=== PATIENT | female | born 1990 | race African-American/Black ===

== ENCOUNTER 2021-01-25 22:12 | Emergency (ER) | payer OTHER ==
[~2021-01-25] VITALS: Ht 167.6 cm; Wt 80.9 kg
[2021-01-25 22:13] VITALS: BP 112/63
[2021-01-25] MEDS ORDERED: ESTROGEN (22:18)
== END 2021-01-26 02:42 | disposition left against medical advice (07) ==
LOC: M ED 22:12
DX: Z53.21 Procedure and treatment not carried out due to patient leaving prior to being seen by health care provider (principal)

== ENCOUNTER → 2021-04-25 | Outpatient (CLI) | payer OTHER ==
[~2021-04-25] MED LIST: ESTROGEN
[2021-04-25 16:40] LABS: BASO % 0.4 % (0.0-1.0); EOS # 0.1 10^3/uL (0.0-0.5); HEMATOCRIT 43.3 % (36.0-47.0); HEMOGLOBIN 14.5 g/dl (12.0-15.5); LYMPH # 2.4 10^3/uL (1.5-5.0); LYMPH % 52.1 % (24.0-44.0); MEAN CORPUSCULAR HEMOGLOBIN 30.4 pg (27.0-33.0); MEAN CORPUSCULAR HGB CONC 33.5 g/dl (32.0-36.5); MEAN CORPUSCULAR VOLUME 90.8 fl (80.0-96.0); MONO # 0.3 10^3/uL (0.0-0.8); MONO % 6.6 % (2.0-8.0); NEUTROPHILS # 1.8 10^3/uL (1.5-8.5); NEUTROPHILS % 38.7 % (36.0-66.0); PLATELET COUNT, AUTOMATED 213 10^3/uL (150-450); RED BLOOD COUNT 4.77 10^6/uL (4.00-5.40); WHITE BLOOD COUNT 4.6 10^3/uL (4.0-10.0)
[2021-04-25 17:06] LABS: ALBUMIN 3.9 GM/DL (3.2-5.2); ALT/SGPT 26 U/L (12-78); BILIRUBIN,TOTAL 0.5 MG/DL (0.2-1.0); BLOOD UREA NITROGEN 13 MG/DL (7-18); CALCIUM LEVEL 8.7 MG/DL (8.5-10.1); CARBON DIOXIDE LEVEL 28 MEQ/L (21-32); CHLORIDE LEVEL 106 MEQ/L (98-107); CREATININE FOR GFR 0.82 MG/DL (0.55-1.30); GLOMERULAR FILTRATION RATE > 60.0 (>60); GLUCOSE, FASTING 79 MG/DL (70-100); POTASSIUM SERUM 3.8 MEQ/L (3.5-5.1); SODIUM LEVEL 137 MEQ/L (136-145); TOTAL PROTEIN 7.7 GM/DL (6.4-8.2)
== END ==
LOC: M LAB 15:14
PROVIDERS: ATTEND Internal Medicine Gastroenterology
DX: R14.2 Eructation (principal)

== ENCOUNTER → 2021-04-27 | Outpatient (REF) | payer OTHER | LOC: M LAB REF 16:26 | PROVIDERS: ATTEND Internal Medicine Gastroenterology | DX: R14.2 Eructation (principal) ==

== ENCOUNTER → 2021-05-16 | Outpatient (CLI) | payer OTHER ==
[~2021-05-16] MED LIST changes: +E-Z-GAS II EFFERVESCENT PACKET (SODIUM BICARB./CITRIC ACID/SIMETHICONE) As Ordered ONE; +E-Z-HD 98% w/w 340GM SUSP BTL As Ordered ONE; +E-Z-PAQUE 96% w/w SUSP 176GM BTL As Ordered ONE
--- NOTE | 2021-05-16 16:44 | REP ---
INDICATION: GASTROPARESIS. COMPARISON: None TECHNIQUE: This procedure was performed by Violet Pantoja [facility], under the direct supervision of Dr. Haywood. Images were reviewed with Dr. Haywood prior to dictation. Liquid barium and gas producing crystals were given in the erect position, as well as liquid barium in the prone oblique position in order to perform a double contrast esophagram examination. FINDINGS: A single view PA chest x-ray is submitted as a guard sergeant film. The superior mediastinal structures are midline. The heart size is within normal limits. The lungs are clear. The oral and pharyngeal stages of deglutition were unremarkable. Esophageal transport is prompt and efficient and there is no evidence of esophagitis, stricture, or mucosal ring. There is no evidence of a hiatal hernia. No gastroesophageal reflux was visualized during the exam. IMPRESSION: Unremarkable esophagram. 0.2 minutes of fluoroscopy time was utilized for this procedure. Some fluoroscopic images are performed with last image hold technology. These images require no additional radiation. <Electronically signed by Violet Pantoja > 05/16/21 [id number] <Electronically signed by Nino Haywood > 05/16/21 [id number]
== END ==
LOC: M RAD 10:18
PROVIDERS: ATTEND Internal Medicine Gastroenterology
DX: K31.84 Gastroparesis (principal)

== ENCOUNTER → 2021-05-25 | Outpatient (CLI) | payer OTHER ==
[~2021-05-25] MED LIST changes: -E-Z-GAS II EFFERVESCENT PACKET (SODIUM BICARB./CITRIC ACID/SIMETHICONE) As Ordered ONE; -E-Z-HD 98% w/w 340GM SUSP BTL As Ordered ONE; -E-Z-PAQUE 96% w/w SUSP 176GM BTL As Ordered ONE
--- NOTE | 2021-05-25 13:57 | REP ---
INDICATION: ERUCTATION, GASTROPARESIS. COMPARISON: None. TECHNIQUE/RADIOTRACER AND DOSE: 1.05 mCi of Technetium-99m sulfur colloid was ingested in two scrambled eggs and 6 ounces of water and sequential anterior and posterior images are acquired for an 89-minute imaging observation period. Regions of interest are drawn around the stomach to plot gastric emptying. FINDINGS: Expected T1/2 is 90 minutes. Forty-five% emptying is observed in this patient during the 89-minute imaging observation period, for a calculated T1/2 in this patient of 106 minutes. IMPRESSION: Normal gastric emptying. <Electronically signed by Gary Laureano > 05/25/21 [id number]
== END ==
LOC: M RAD 12:00
PROVIDERS: ATTEND Internal Medicine Gastroenterology
DX: R14.2 Eructation (principal); K31.84 Gastroparesis; F45.8 Other somatoform disorders
CPT/HCPCS: 78264; A9541

== ENCOUNTER 2021-08-04 10:28 | Day surgery (SDC) | payer OTHER ==
[~2021-08-04] VITALS: Ht 167.6 cm; Wt 79.8 kg
[~2021-08-04 10:28] MED LIST changes: +NS 1,000 ML IV ONE
--- OUTSIDE RECORDS SUMMARY | 2021-08-04 10:32 | CCD ---
Author Author [facility] Organization [facility] Address Unknown Phone Unavailable Care Team Providers Care Combiner Name Role Phone NICANOR BOSS MD Unavailable Unavailable REINDL, NICANOR BUNN Unavailable Unavailable REINDL, NICANOR BUNN Unavailable Unavailable REINDL, NICANOR BUNN Unavailable Unavailable KARYN, NICANOR BUNN Unavailable Unavailable KARYN, NICANOR BUNN Unavailable Unavailable REINMACIEL, NICANOR BUNN Unavailable Unavailable REINMACIEL, NICANOR BUNN Unavailable Unavailable REINMACIEL, NICANOR BUNN Unavailable Unavailable KARYN, NICANOR BUNN Unavailable Unavailable KARYN, NICANOR BUNN Unavailable Unavailable KARYN, NICANOR BUNN Unavailable Unavailable REINMACIEL, NICANOR BUNN Unavailable Unavailable REINMACIEL, NICANOR BUNN Unavailable Unavailable REINMACIEL, NICANOR BUNN Unavailable Unavailable REINMACIEL, NICANOR BUNN Unavailable Unavailable REINMACIEL, NICANOR BUNN Unavailable Unavailable REINMACIEL, NICANOR BUNN Unavailable Unavailable REINMACIEL, NICANOR BUNN Unavailable Unavailable REINDL, NICANOR BUNN Unavailable Unavailable REINMACIEL, NICANOR BUNN Unavailable Unavailable REINMACIEL, NICANOR BUNN Unavailable Unavailable REINMACIEL, NICANOR BUNN Unavailable Unavailable REINMACIEL, NICANOR BUNN Unavailable Unavailable REINMACIEL, NICANOR BUNN Unavailable Unavailable REINMACIEL, NICANOR BUNN Unavailable Unavailable REINMACIEL, NICANOR BUNN Unavailable Unavailable KARYN, NICANOR BUNN Unavailable Unavailable REINMACIEL, NICANOR BUNN Unavailable Unavailable REINMACIEL, NICANOR BUNN Unavailable Unavailable KARYN, NICANOR BUNN Unavailable Unavailable KARYN, NICANOR BUNN Unavailable Unavailable KARYN, NICANOR BUNN Unavailable Unavailable KARYN, NICANOR BUNN Unavailable Unavailable KARYN, NICANOR BUNN Unavailable Unavailable KARYN, NICANOR BUNN Unavailable Unavailable REINMACIEL, NICANOR BUNN Unavailable Unavailable REINMACIEL, NICANOR BUNN Unavailable Unavailable REINDL, NICANOR BUNN Unavailable Unavailable REINDL, NICANOR MD Unavailable Unavailable NICANOR BOSS MD Unavailable Unavailable NICANOR BOSS MD Unavailable Unavailable Bolkary, Michael Toledo MD Unavailable Unavailable Bolla, Michael Toledo MD Unavailable Unavailable Bolla, Michael Toledo MD Unavailable Unavailable Bolla, Michael Toledo MD Unavailable Unavailable Bolla, Michael Toledo MD Unavailable Unavailable Bolkary, Michael Toledo MD Unavailable Unavailable Bolla, Michael Toledo MD Unavailable Unavailable Bolla, Michael Toledo MD Unavailable Unavailable Bolla, Michael Toledo MD Unavailable Unavailable Bolla, Michael Toledo MD Unavailable Unavailable Bolla, Michael Toledo MD Unavailable Unavailable Bolkary, Michael Toledo MD Unavailable Unavailable Bolla, Michael Toledo MD Unavailable Unavailable Bolla, Michael Toledo MD Unavailable Unavailable Bolla, Michael Toledo MD Unavailable Unavailable Bolla, Michael Toledo MD Unavailable Unavailable Bolla, Michael Toledo MD Unavailable Unavailable Bolkary, Michael Toledo MD Unavailable Unavailable Bolla, Michael Toledo MD Unavailable Unavailable Bolla, Michael Toledo MD Unavailable Unavailable Bolla, Michael Toledo MD Unavailable Unavailable Bolkary, Michael Toledo MD Unavailable Unavailable Bolla, Michael Toledo MD Unavailable Unavailable Bolkary, Michael Toledo MD Unavailable Unavailable Bolla, Michael Toledo MD Unavailable Unavailable Bolkary, Michael Toledo MD Unavailable Unavailable Bolla, Michael Toledo MD Unavailable Unavailable Bolkary, Michael Toledo MD Unavailable Unavailable Bolla, Michael Toledo MD Unavailable Unavailable Bolkary, Michael Toledo MD Unavailable Unavailable Bolkary, Michael Toledo MD Unavailable Unavailable Bolkary, Michael Toledo MD Unavailable Unavailable Bolla, Michael Toledo MD Unavailable Unavailable Bolkary, Michael Toledo MD Unavailable Unavailable Bolkary, Mihcael Toledo MD Unavailable Unavailable Bolkary, Michael Toledo MD Unavailable Unavailable Bolkary, Michael Toledo MD Unavailable Unavailable Bolkary, Michael Toledo MD Unavailable Unavailable Bolkary, Michael Toledo MD Unavailable Unavailable Bolla, Michael Toledo MD Unavailable Unavailable Bolkary, Michael Toledo MD Unavailable Unavailable Bolkary, Michael Toledo MD Unavailable Unavailable Bolkary, Michael Toldeo MD Unavailable Unavailable Bolkary, Michael Toledo MD Unavailable Unavailable Bolla, Michael Toledo MD Unavailable Unavailable Bolkary, Michael Toledo MD Unavailable Unavailable Bolla, Michael Toledo MD Unavailable Unavailable Bolkary, Michael Toledo MD Unavailable Unavailable Bolla, S Tre MD Unavailable Unavailable Jumalon, M Sherley VOIP NETWORK ENGINEER Unavailable Unavailable Jumalon, M Sherley VOIP NETWORK ENGINEER Unavailable Unavailable Jumalon, M Sherley VOIP NETWORK ENGINEER Unavailable Unavailable Jumalon, M Sherley VOIP NETWORK ENGINEER Unavailable Unavailable Jumalon, M Sherley VOIP NETWORK ENGINEER Unavailable Unavailable Jumalon, M Sherley VOIP NETWORK ENGINEER Unavailable Unavailable Jumalon, M Sherley VOIP NETWORK ENGINEER Unavailable Unavailable Jumalon, M Sherley VOIP NETWORK ENGINEER Unavailable Unavailable Jumalon, M Sherley VOIP NETWORK ENGINEER Unavailable Unavailable Jumalon, M Sherley VOIP NETWORK ENGINEER Unavailable Unavailable Jumalon, M Sherley VOIP NETWORK ENGINEER Unavailable Unavailable Jumalon, M Sherley VOIP NETWORK ENGINEER Unavailable Unavailable Jumalon, M Sherley VOIP NETWORK ENGINEER Unavailable Unavailable Jumalon, M Sherley VOIP NETWORK ENGINEER Unavailable Unavailable Jumalon, M Sherley VOIP NETWORK ENGINEER Unavailable Unavailable Jumalon, M Sherley VOIP NETWORK ENGINEER Unavailable Unavailable Jumalon, M Sherley VOIP NETWORK ENGINEER Unavailable Unavailable Jumalon, M Sherley VOIP NETWORK ENGINEER Unavailable Unavailable Jumalon, M Sherley VOIP NETWORK ENGINEER Unavailable Unavailable Jumalon, M Sherley VOIP NETWORK ENGINEER Unavailable Unavailable Jumalon, M Sherley VOIP NETWORK ENGINEER Unavailable Unavailable Jumalon, M Sherley VOIP NETWORK ENGINEER Unavailable Unavailable Jumalon, M Sherley VOIP NETWORK ENGINEER Unavailable Unavailable Jumalon, M Sherley VOIP NETWORK ENGINEER Unavailable Unavailable Jumalon, M Sherley VOIP NETWORK ENGINEER Unavailable Unavailable Jumalon, M Sherley VOIP NETWORK ENGINEER Unavailable Unavailable Jumalon, M Sherley VOIP NETWORK ENGINEER Unavailable Unavailable Jumalon, M Sherley VOIP NETWORK ENGINEER Unavailable Unavailable Jumalon, M Sherley VOIP NETWORK ENGINEER Unavailable Unavailable Jumalon, M Sherley VOIP NETWORK ENGINEER Unavailable Unavailable Lolita JUAN Unavailable Unavailable [facility] Unavailable Unavailable Nadia PATTERSON MD Unavailable Unavailable Nadia PATTERSON MD Unavailable Unavailable Nadia PATTERSON MD Unavailable Unavailable Nadia PATTERSON MD Unavailable Unavailable Nadia PATTERSON MD Unavailable Unavailable Nadia PATTERSON MD Unavailable Unavailable Nadia PATTERSON MD Unavailable Unavailable Nadia PATTERSON MD Unavailable Unavailable Nadia PATTERSON MD Unavailable Unavailable Nadia PATTERSON MD Unavailable Unavailable Nadia PATTERSON MD Unavailable Unavailable Nadia PATTERSON MD Unavailable Unavailable LEONARDO, L XOCHILT MD Unavailable Unavailable LEONARDO, L XOCHILT MD Unavailable Unavailable LEONARDO, L XOCHILT MD Unavailable Unavailable LEONARDO, L XOCHILT MD Unavailable Unavailable LEONARDO, L XOCHILT MD Unavailable Unavailable LEONARDO, L XOCHILT MD Unavailable Unavailable LEONARDO, L XOCHILT MD Unavailable Unavailable LEONARDO, L XOCHILT MD Unavailable Unavailable Re-disclosure Warning The records that you are about to access may contain information from federally-assisted alcohol or drug abuse programs. If such information is present, then the following federally mandated warning applies: This information has been disclosed to you from records protected by federal confidentiality rules (42 CFR part 2). The federal rules prohibit you from making any further disclosure of this information unless further disclosure is expressly permitted by the written consent of the person to whom it pertains or as otherwise permitted by 42 CFR part 2. A general authorization for the release of medical or other information is NOT sufficient for this purpose. The Federal rules restrict any use of the information to criminally investigate or prosecute any alcohol or drug abuse patient.The records that you are about to access may contain highly sensitive health information, the redisclosure of which is protected by Article 27-F of the [facility] Public Health law. If you continue you may have access to information: Regarding HIV / AIDS; Provided by facilities licensed or operated by the [facility] Office of Mental Health; or Provided by the [facility] Office for People With Developmental Disabilities. If such information is present, then the following [facility] mandated warning applies: This information has been disclosed to you from confidential records which are protected by state law. State law prohibits you from making any further disclosure of this information without the specific written consent of the person to whom it pertains, or as otherwise permitted by law. Any unauthorized further disclosure in violation of state law may result in a fine or penitentiary sentence or both. A general authorization for the release of medical or other information is NOT sufficient authorization for further disc losure. Encounters Encounter Providers Location Date Indications Data Source(s ) Outpatient Attender: NICANOR Shetty/Myrtle/Marvin/Tg soriano 04/25/2021 01:45:00 PM EDT [facility] ([facility], ) Outpatient Attender: JOSE L JUAN 04/11/2021 05:15:00 PM ED T [facility] PELVIC PAIN Tre Cisse MD: [id number], [address], [place] [address], Ph. Attender: Tre Cisse MD MD - [facility] 04/04/2021 12:00:00 AM EDT NAZARIO ([facility]) Sherley Hernández, ADMITTING SUPERVISOR: [address], [address], [place] [address], Ph. Attender: Sherley Edgar [facility] - [facility] 03/09/2021 12:00:00 AM EDT ATHE NA ([facility]) Sherley Hernández, ADMITTING SUPERVISOR: [address], [address], [place] [address], Ph. Attender: Sherley Edgar [facility] - [facility] 03/09/2021 12:00:00 AM EDT ATHE NA ([facility]) Tre Cisse MD: [id number], [address], [place] [address], Ph. Attender: Tre Cisse MD MD - [facility] 02/21/2021 12:00:00 AM EDT NAZARIO ([facility]) Tre Cisse MD: [address], [address], [place] [address], Ph. Attender: Tre Cisse MD MD - [facility] 02/21/2021 12:00:00 AM EDT NAZARIO ([facility]) Tre Cisse MD: [address], [address], [place] [address], Ph. Attender: Tre Cisse MD MD - [facility] 02/21/2021 12:00:00 AM EDT NAZARIO ([facility]) Tre Cisse MD: [address], [address] [place], [place] [phone], Ph. Attender: Tre Cisse MD MD - [facility] 02/07/2021 12:00:00 AM EDT NAZARIO ([facility]) Tre Cisse MD: [address], [address] [place], [place] [phone], Ph. Attender: Tre CONDE - [facility] 02/07/2021 12:00:00 AM EDT NAZARIO ([facility]) Tre Cisse MD: [id number], [facility] [place], [place] [phone], Ph. Attender: Tre CONDE - [facility] 02/07/2021 12:00:00 AM EDT NAZARIO ([facility]) Tre Cisse MD: [address], [facility] [place] [address], Ph. Attender: Tre Cisse MD MD - [facility] 02/07/2021 12:00:00 AM EDT NAZARIO ([facility]) Emergency Attender: XOCHILT PATTERSON MDConsultant: [facility] 01/26/2021 01:41:00 PM EDT - 01/26/2021 05:00:00 PM EDT [facility] Patient discharged. Medications Medication Brand Name Start Date Product Form Dose Route Admi nistrative Instructions Pharmacy Instructions Status Indications Reaction Description Data Source(s) POLYETHYLENE GLYCOL 3350 142 MG/ML Oral Solution [Miralax] M iralax 04/25/2021 12:00:00 AM EDT eli BETANCOURT ([facility], ) Dicyclomine Hydrochloride 20 MG Oral Tablet Dicyclomine HCL 04/25/2021 12:00:00 AM EDT ORAL active [facility] ([facility], ) Magnesium Hydroxide 80 MG/ML Oral Suspension Milk Of Magnesi a 04/25/2021 12:00:00 AM EDT ORAL active M EDENT ([facility], ) Cyclobenzaprine hydrochloride 10 MG Oral Tablet CYCLOBENZAPR INE HCL 01/26/2021 12:00:00 AM EDT tablet 15 TAKE ONE TABLET BY MOUTH EVERY 8 HOURS NEEDED FOR PAIN/MUSCLE SPASMS TAKE ONE TABLET BY MOUTH EVERY 8 HOURS A S NEEDED FOR PAIN/MUSCLE SPASMS SOLD: 01/26/2021 [facility] gabapentin 300 MG Oral Capsule gabapentin 300 mg capsu le gabapentin 300 mg capsule completed gabapentin 300 MG Oral Capsule NAZARIO ([facility]) gabapentin 300 MG Oral Capsule gabapentin 300 mg capsu le gabapentin 300 mg capsule completed gabapentin 300 MG Oral Capsule NAZARIO ([facility]) Insurance Providers Payer name Policy type / Coverage type Policy ID Covered republican ID Covered republican's relationship to aguilera Policy Aguilera Plan Information [facility] [id number] [facility] [id number] [facility] - O/P [id number] 01 [id number] Problems, Conditions, and Diagnoses Code Display Name Description Problem Type Effective Dates Data Source(s) Y9[address] or not applicable Unspecified place or not applicable Diagnosis 01/26/2021 01:41:00 PM T [facility] [id number] Exposure to other specified factors, ini tial encounter Exposure to other specified factors, initial encounter Diagnosis 01/26/2021 01:41:00 PM T [facility] [id number] Unspecified ovarian cyst, left side Unspecified ovarian cyst, left side Diagnosis 01/26/2021 01:41:00 PM [facility] [id number] Strain of muscle, fascia and tendon of l ower back, initial encounter Strain of muscle, fascia and tendon of lower back, initial encounter Diagnosis 01/26/2021 01:41:00 PM T [facility] M545 Low back pain Low back pain Diagnosis 01/26/2021 01:41:00 PM [facility] Surgeries/Procedures Procedure Description Date Indications Data Source(s) OFFICE OUTPATIENT NEW 45 MINUTES 04/25/2021 12:00:00 A M EDT [facility] Results ID Date Data Source [id number] 07/31/2021 09:42:00 AM EST [facility] Name Value Range Interpretation Code Description Data Rosa Maria rce(s) Supporting Document(s) SARS coronavirus 2 RNA Not Detected [facility] [place] This lab was ordered by [facility] and reported by [facility]. ID Date Data Source [id number] 06/16/2021 12:00:00 AM EDT [facility] Name Value Range Interpretation Code Description Data Rosa Maria rce(s) Supporting Document(s) SARS-COV-2 Negative [facility] This lab was ordered by [facility] and re ported by [facility]. ID Date Data Source [id number] 04/27/2021 07:40:00 AM EDT [facility]) Name Value Range Interpretation Code Description Data Rosa Maria rce(s) Supporting Document(s) Calprotectin [Mass/mass] in Stool Laboratory test result 0-120 Normal (applies to non-numeric results) [facility] ([facility]) <content>Concentration Interpretatio n Follow-Up</content>
<content><16 - 50 ug/g Normal None</content>
<content>>50 -120 ug/g Borderline Re-evaluate in 4-6 weeks</content>
<content>>120 ug/g Abnormal Repeat as clinically</content>
<content>indicated</content>
<content>Performed at: [facility]</content>
<content>[address] [place] [phone]</content>
<content>Hadoop Consultant: Constantin Leblanc MD, Phone: [phone]</content>
<content></content> Elastase.pancreatic [Mass/mass] in Stool Laboratory test result Normal (applies to non-numeric results) [facility] ([facility]) <content>Result Units: ug Elast./g</cont ent>
<content>Severe Pancreatic Insufficiency: <100</content>
<content>Moderate Pancreatic Insufficiency: 100 - 200</content>
<content>Normal: >200</content>
<content></content> ID Date Data Source [id number] 04/27/2021 07:40:00 AM EDT [facility]) Name Value Range Interpretation Code Description Data [facility](s) Supporting Document(s) Gastrointestinal (GI) Panel Laboratory test result [facility]) This Gastrointestinal PCR Panel detects the following bacteria, parasites and viruses: Campylobacter (jejuni, coli and upsaliensis), Clostridium difficile (toxin A/B), Plesiomonas shigelloides, Salmonella, Yersinia enterocolitica, Vibrio (parahaemolyticus, vulnificus and cholerae), Vibrio clolerae, Enteroaggregative E. coli (EAEC), Enteropathogenis E. coli (EPEC), Enterotoxigenic E. coli (ETEC) it/st, Shiga-like producing E. coli (STEC) stx1/stc2, E.coli O157, Shigella/Enteroinvasive E. coli (EIEC), Cryptosporidium, Cyclospora cayetanensis, Entamoeba histolytica, Giardia lamblia, Adenovirus F 40/41, Astrovirus, Norovirus GI/GII, Rotavirus A and Sapovirus (I, II, IV, V). One negative specimen does not rule out the possibility of a parasitic infection. NEGATIVE by MULTIPLEXED NUCLEIC ACID PCR ID Date Data Source [id number] 04/25/2021 03:36:00 PM EDT [facility] ([facility]) Name Value Range Interpretation Code Description Data [facility] rce(s) Supporting Document(s) Red Blood Count 4.77 10 4.00-5.40 Normal (applies to non-numeric results) [facility] ([facility]) White Blood Count 4.6 10 4.0-10.0 Normal (applies to non-numeri c results) [facility] ([facility]) Mean Corpuscular Volume 90.8 fl 80.0-96.0 Normal ( applies to non-numeric results) [facility] ([facility]) Hemoglobin 14.5 g/dL 12.0-15.5 Normal (applies to non-numeric resul ts) [facility] ([facility], ) Hematocrit 43.3 % 36.0-47.0 Normal (applies to non-numeric resul ts) [facility]) Mean Corpuscular Hemoglobin 30.4 pg 27.0-33.0 Norm al (applies to non-numeric results) [facility]) Mean Corpuscular HGB Conc 33.5 g/dL 32.0-36.5 Normal (applies to non-numeric results) [facility] ([facility]) Red Cell Distribution Width 11.7 % 11.5-14.5 Norm al (applies to non-numeric results) [facility]) Lymph % 52.1 % 24.0-44.0 Above high normal [facility] ([facility]) Neutrophils % 38.7 % 36.0-66.0 Normal (applies to non-numeric re sults) [facility] ([facility]) Platelet Count, Automated 213 10 150-450 Normal (applies to non-numeric results) [facility]) Eos % 2.0 % 0.0-3.0 Normal (applies to non-numeric resul ts) [facility]) Garfield % 6.6 % 2.0-8.0 Normal (applies to non-numeric resul ts) [facility]) Baso % 0.4 % 0.0-1.0 Normal (applies to non-numeric resul ts) [facility] Immature Granulocyte % 0.2 % 0-3.0 Normal (applies to non-n umeric results) [facility]) Neutrophils # 1.8 10 1.5-8.5 Normal (applies to non-numeric re sults) [facility]) Lymph # 2.4 10 1.5-5.0 Normal (applies to non-numeric resul ts) [facility]) Nucleated Red Blood Cell % 0.0 % 0-0 Normal (applies to n on-numeric results) [facility]) Garfield # 0.3 10 0.0-0.8 Normal (applies to non-numeric resul ts) [facility] ([facility]) Eos # 0.1 10 0.0-0.5 Normal (applies to non-numeric resul ts) [facility] ([facility]) Baso # 0.0 10 0.0-0.2 Normal (applies to non-numeric resul ts) [facility] ([facility]) 05/15/21 (SatMay 15) 07:22 PM NICANOR CAMPOVERDE ok ID Date Data Source [id number] 04/25/2021 03:36:00 PM EDT [facility] ([facility]) Name Value Range Interpretation Code Description Data Rosa Maria rce(s) Supporting Document(s) Glucose, Fasting 79 mg/dL 70-100 Normal (applies to non-numeric results) [facility] ([facility]) Creatinine For GFR 0.82 mg/dL 0.55-1.30 Normal (applies to non -numeric results) [facility] ([facility]) Blood Urea Nitrogen 13 mg/dL 7-18 Normal (applies to non-nume lakshmi results) [facility] ([facility]) Glomerular Filtration Rate Laboratory test result Normal (applies to non- numeric results) [facility]) <content>Units are mL/min/1.73 m2</content>
<content></content>
<content>Chronic Kidney Disease Staging per NKF:</content>
<content></content>
<content>Stage I & II GFR >=60 Normal to Mildly Decreased</content>
<content>Stage III GFR 30- 59 Moderately Decreased</content>
<content>Stage IV GFR 15-29 Severely Decreased</content>
<content>Stage V GFR <15 Very Little GFR Left</content>
<content>ESRD GFR <15 on RAIL CAR REPAIR CARMAN</content>
<content></content> Potassium Serum 3.8 meq/L 3.5-5.1 Normal (applies to non-numeric results) [facility] ([facility]) Sodium Level 137 meq/L 136-145 Normal (applies to non-numeric res ults) [facility]) Carbon Dioxide Level 28 meq/L 21-32 Normal (applies to non-num sven results) [facility] ([facility]) Chloride Level 106 meq/L 98-107 Normal (applies to non-numeric r esults) [facility] ([facility]) Anion Gap 3 meq/L 8-16 Below low normal [facility] ( [facility]) Calcium Level 8.7 mg/dL 8.5-10.1 Normal (applies to non-numeric re sults) [facility]) Alt/SGPT 26 U/L 12-78 Normal (applies to non-numeric resul ts) [facility]) Ast/Sgot 13 U/L 7-37 Normal (applies to non-numeric resul ts) [facility] ([facility]) Alkaline Phosphatase 58 U/L 45-117 Normal (applies to non-num sven results) [facility] ([facility]) Total Protein 7.7 GM/DL 6.4-8.2 Normal (applies to non-numeric re sults) [facility] ([facility]) Albumin 3.9 GM/DL 3.2-5.2 Normal (applies to non-numeric resul ts) [facility] ([facility]) Bilirubin,Total 0.5 mg/dL 0.2-1.0 Normal (applies to non-numeric results) [facility] ([facility]) Albumin/Globulin Ratio 1.0 1.2-2.2 Below low normal [facility] ([facility]) ID Date Data Source [id number] 04/25/2021 03:36:00 PM EDT [facility] Name Value Range Interpretation Code Description Data Rosa Maria rce(s) Supporting Document(s) Gastrin [Mass/volume] in Serum or Plasma 17 pg/mL 0-115 Normal (applies to non- numeric results) [facility] ([facility]) Siemens Duolingoulite 2000 Immunochemiluminom etric assay (ICMA) . Values obtained with different assay methods or kits cannot be used interchangeably. Results cannot be interpreted as absolute evidence of the presence or absence of malignant disease. Chromogranin A [Moles/volume] in Serum or Plasma 38.5 ng/mL 0.0-101.8 Normal (applies to non-numeric results) [facility] ([facility] ) Chromogranin A performed by [employer] /[employer] KRYPTOR methodology . Values obtained with different assay methods or kits cannot be used interchangeably. Performed at: [address] [id number] 61 [employer] Consultant: Constantin Leblanc MD, Phone: [phone] ID Date Data Source [id number] 01/27/2021 04:05:00 PM EDT [facility] [address] [place] [address] PHONE: [phone] FAX: [phone] Name .................. : MONICA SPRAGUE Acct Number.................. : [id number] ROOM. ................. : TR-01 MR Number ................... : [id number] Stay type ............. : E/R Discharge Date......... ... : 01/26/21 Admit Date ......... : 01/26/21 Admit Phys .................... : COONEYNORM Date of ....... : 1990 Family Phys ................... : UNKNOWN Phone .................. : [phone] Age ................................ : 30 Film# .................. .:[id number] Sex ................................. : F Unsigned transcriptions are preliminary reports and do not represent a medical or legal document CT ABD & PELVIS W/ IV ONLY [id number] COMPLETE:01/26/21 16:11 ROSIE [id number] Reason(s): Abdominal Pain CT OF THE ABDOMEN AND PELVIS WITH CONTRAST: INDICATION: Abdominal pain. FINDINGS: The chest base is clear. There is normal contrast- enhanced CT appearance of the liver, spleen, pancreas, adrenal glands and kidneys. No gallbladder wall thickening or biliary duct dilatation. The visualized bowel is normal in caliber. There is no bowel wall thickening. The appendix is normal. The bladder is normal. There appears to be a 3.3 x 2.6 cm left ovarian cyst. No acute osseous abnormality. No lymphadenopathy. IMPRESSION: 3.3 x 2.6 cm left ovarian cyst. No other acute intra-abdominal proce ss. While performing the above CT examination, radiation dose reduction was accomplished utilizing automated exposure control, adjusting of the mA and kV based on the patient's body size and/or the use of imperative reconstructive techniques. CT dose: 798.9 mGycm Page 1 of 2 [place] [address] PHONE: [phone] FAX: [phone] Name .................. : MONICA SPRAGUE Acct Number.................. : [id number] ROOM. ................. : TR-01 MR Number ................... : [id number] Stay type ............. : E/R Discharge Date......... ... : 01/26/21 Admit Date ......... : 01/26/21 Admit Phys .................... : COONEYNORM Date of ....... : 1990 Family Phys ................... : UNKNOWN Phone .................. : [phone] Age ................................ : 30 Film# .................. .:[id number] Sex ................................. : F Unsigned transcriptions are preliminary reports and do not represent a medical or legal document CT ABD & PELVIS W/ IV ONLY [id number] COMPLETE:01/26/21 16:11 ROSIE [id number] Reason(s): Abdominal Pain Contrast agent in mL: 75 Isovue 370 Method of administration: Intravenous Electronically Reviewed and Signed By Ramy Brown M.D. , 01/27/21 16:05, [facility] Transcribe Initials: RADHA , Transcribe Date: 01/27/21 02:38, Dictation Date: Copy for: EMERGENCY DEPT via mode Copy for: 710 MED REC DISCHARGED Page 2 of 2 Name Value Range Interpretation Code Description Data Rosa Maria rce(s) Supporting Document(s) ID Date Data Source [id number] 01/26/2021 01:41:00 PM EDT [facility] 1 OrderSheet [facility] Emergency Department [address] [place] [address] Phone #: ext- [phone] 01/26/2021 13:34 Patient: DARCIE ANDERSON Sex: F : 1990 Age: 30yWEIGHT:78.9 kg (S) HEIGHT:66 inches (S) BMI:28.1ALLERGIES: No Known Drug AllergyCHIEF COMPLAINT: back painDIAGNOSIS: Cyst of ovary, Muscle strainLAB ORDERSOrder Description Priority Entered Acknowledged InitialedUrinalysis (Clean STAT 14:11 01/26/2021 14:11 Thomas Mark) Nuvia MarkN. RKervinNKervin; Verbal order per; Gregory Cabezas PACBC w Diff STAT 14:58 01/26/2021 15:01 Xochilt Jones MD; Nate RNCMP STAT 14:58 01/26/2021 15:01 Xochilt Jones MD; Nate MULLENLactic Acid STAT 14:58 01/26/2021 15:01 Xochilt Jones MD; Nate MULLENDIAGNOSTIC STUDY ORDERSOrder Description Priority Entered Acknowledged InitialedCT Abd PEL W/ IV STAT 14:58 01/26/2021 15:30 DorisContrast Only Xochilt Patterson MD; Nate RN(Oxygen?(No))(IV?(Yes)) NOTES: hysterectomy 04/21 Reason for Study: Abdominal PainMEDICATION/IV/DRIP/FLUID ORDERSOrder Description Priority Entered Acknowledged InitialedAcetaminophen IV 14:59 01/26/2021 15:26 Pcnet3007 mg (NOW x1, Xochilt Patterson MD; Nate RNInfuse over 15minutes)Toradol IVP 30 mg 14:59 01/26/2021 15:24 Erin(NOW x1) Xochilt Patterson MD; Nate MULLENValium PO 5 mg 14:59 01/26/2021 15:24 Xochilt Jones MD; Nate RN 2 OrderSheet [facility] Emergency Department [address] [place] [address] Phone #: ext- [phone] 01/26/2021 13:34 Patient: DARCIE ANDERSON Sex: F : 1990 Age: 30yGENERAL ORDERSOrder Description Priority Entered Acknowledged Initialed[Electronically signed by Erin Sullivan RN (17:06 01/26/2021)][Electronically signed by Xochilt Patterson MD (20:05 01/26/2021)][Electronically locked by Erin Sullivan RN (17:01/26/2021)] Name Value Range Interpretation Code Description Data Rosa Maria rce(s) Supporting Document(s) ID Date Data Source [id number] 01/26/2021 01:41:00 PM EDT [facility] 1 Medication Reconciliation Report [facility] Emergency Department [address] [place] [address] Phone #: owx- [phone] 01/26/2021 13:34 Patient: DARCIE ANDERSON Sex: F : 1990 Age: 30yWeight: 78.9 kgHeight/Length: 66 in.BMI: 28.1ALLERGIES: No Known Drug AllergyThe patient's Home Medications are listed below:NONE.The source(s) of the original Home Medication information:patientThe following Medications were given to the patient in the Emergency Dep artment:Toradol [IVP] IVP 30 mg, administered: 15:14 01/26/2021Valium [PO] PO 5 mg, administered: 15:15 01/26/2021cetaminophen Drip IV bolus 0, then 1000 mg, administered: 15:15 01/26/2021The following Medications were prescribed to the patient:cyclobenzaprine 10 mg tablet Take 1 tablet every eight hours as needed for pain for 5 days -- prn musclespasms. Dispense 15 tablet. Refills: 0. Substitution permitted. Note to Pharmacy - Rx DISCOUNT CARD:$ 5.66. USE: BIN:[id number], PCN:[id number], Group:[id number], ID:[id number].Pharmacy - [facility] - [address], [place] [id number]. . -- Xochilt Patterson MD Name Value Range Interpretation Code Description Data Rosa Maria rce(s) Supporting Document(s) ID Date Data Source [id number] 01/26/2021 01:41:00 PM EDT [facility] 1 Medication Administration Record [facility] Emergency Department [address] [place] [address] Phone #: ext- [phone] 01/26/2021 13:34 Patient: DARCIE ANDERSON Sex: F : 1990 Age: 30yWeight: 78.9 kgHeight/Length: 66 inBMI: 28.1ALLERGIES: No Known Drug Allergy Date/Time Medication Administered Medication OrderedStart Acetaminophen * Acetaminophen IV 1000 mg (NOW15:15 01/26/2021 Dose: 1000 mg * Drip IV x1, Infuse over 15 minutes)Erin Sullivan RN----Stop15:30 1Dtram Sullivan RNGiven TORADOL [IVP] (KETOROLAC Toradol IVP 30 mg (NOW x1)15:14 01/26/2021 TROMETHAMINE)Erin Sullivan RN Dose: 30 mg IVP Site: #1 right ACGiven VALIUM [PO] (DIAZEPAM) Valium PO 5 mg15:15 01/26/2021 Dose: 5 mg Tablets Jean-Claude Sullivan RN Name Value Range Interpretation Code Description Data Rosa Maria rce(s) Supporting Document(s) ID Date Data Source [id number] 01/26/2021 01:41:00 PM EDT [facility] 1 General Instructions [facility] Emergency Department [address] [place] [address] Phone #: ext- [phone] 01/26/2021 13:34 Patient: DARCIE ANDERSON Sex: F : 1990 Age: 30yMuscle strain of the low back.Left ovarian cyst.INSTRUCTIONSNo lifting greater than 5 lbs until well. No strenuous activity. Do not work for three days.(Take tylenol, motrin and flexeril as instructed. return if worse or any new symptoms. Take allmedications as previously instructed. Please follow up with gynecology regarding your ovarian cyst on theleft measuring 3.3cmx 2.6cm.).Warnings: GENERAL WARNINGS: Return or contact your physician immediately if your conditionworsens or changes unexpectedly, if not improving as expected, or if other problems arise.Your Current Medications: .No home medication.Prescription Medications:cyclobenzaprine 10 mg tablet Take 1 tablet every eight hours as needed for pain for 5 days -- prn musclespasms. Dispense 15 tablet. Refills: 0. Substitution permitted. Note to Pharmacy - Rx DISCOUNT CARD:$ 5.66. USE: BIN:[id number], PCN:[id number], Group:[employer], ID:[id number].Pharmacy - [facility] - [address], [place] [id number]. .Follow-up:Follow up with your doctor Saturday. Call for an patrice ointment. Reason for referral: evaluation. Summary ofcare provided to patient via paper.Understanding of the discharge instructions verbalized by patient. ADDITIONAL INFORMATIONMuscle Strain in the ExtremitiesA muscle strain is a stretching and tearing of muscle fibers. This causes pain, especially when youmove that muscle. There may also be some swelling and bruising.Home care 2 General Instructions [facility] Emergency Department [address] [place] [address] Phone #: ext- [phone] 01/26/2021 13:34 Patient: DARCIE ANDERSON Sex: F : 1990 Age: 30y Keep the hurt area raised above heart level to reduce pain and swelling. This is especially important during the first 48 hours. Apply an ice pack over the injured area for 15 to 20 minutes every 3 to 6 hours. You should do this for the first 24 to 48 hours. You can make an ice pack by filling a plastic bag that seals at the top with ice cubes and then wrapping it with a thin towel. Be careful not to injure your skin with the ice treatments. Ice should never be applied directly to skin. Continue the use of ice packs for relief of pain and swelling as needed. After 48 hours, apply heat (warm shower or warm bath) for 15 to 20 minutes several times a day, or alternate ice and heat. You may use xilv-xxy-efjozlf pain medicine to control pain, unless another medicine was prescribed. If you have chronic liver or kidney disease or ever had a stomach ulcer or gastrointestinal bleeding, talk with your healthcare provider before using these medicines. For leg strains: If crutches have been recommended, don't put full weight on the hurt leg until you can do so without pain. You can return to sports when you are able to hop and run on the injured leg without pain.Follow-up careFollow up with your healthcare provider, or as advised.When to seek medical adviceCall your healthcare provider right away if any of these occur: The toes of the injured leg become swollen, cold, blue, numb, or tingly Pain or swelling increases [id number] [employer]. [address] [place] [address], [place] [address]. All rights reserved. This information is not intended as asubstitute for professional medical care. Always follow your healthcare professional's instructions.Back Pain (Acute or Chronic) 3 General Instructions [facility] Emergency Department [address] [place] [address] Phone #: [phone] bec- [phone] 01/26/2021 13:34 Patient: DARCIE ANDERSON Sex: F : 1990 Age: 30yBack pain is one of the most common problems. The good news is that most people feel better in 1 to2 weeks, and most of the rest in 1 to 2 months. Most people can remain active.People who have pain describe it differently--not everyone is the same. The pain can be sharp, stabbing, shooting, aching, cramping or burning. Movement, standing, bending, lifting, sitting, or walking may worsen pain. It can be limited to one spot or area, or it can be more generalized. It can spread upwards, to the front, or go down your arms or legs (sciatica). It can cause muscle spasm.Most of the time, mechanical problems with the muscles or spine cause the pain. Mechanicalproblems are usually caused by an injury to the muscles or ligaments. Illness can cause back pain,but it's usually not caused by a serious illness. Mechanical problems include: 4 General Instructions [facility] Emergency Department [address] [place] [address] Phone #: ext- [phone] 01/26/2021 13:34 Patient: DARCIE ANDERSON Sex: F : 1990 Age: 30y Physical activity such as sports, exercise, work, or normal activity Overexertion, lifting, pushing, pulling incorrectly or too aggressively Sudden twisting, bending, or stretching from an accident, or accidental movement Poor posture Stretching or moving wrong, without noticing pain at the time Poor coordination, lack of regular exercise (check with your doctor about this) Spinal disc disease or arthritis StressPain can also be related to , or illness like appendicitis, bladder or kidney infections, pelvicinfections, and many other things.Acute back pain usually gets better in 1 to 2 weeks. Back pain related to disk disease, arthritis in thespinal joints, or narrowing of the spinal canal (spinal stenosis) can become chronic and last formonths or years.Unless you had a physical injury such as a car accident or fall, X-rays are usually not needed for thefirst assessment of back pain. If pain continues and does not respond to medical treatment, you mayneed X-rays and other tests.Home careTry this home care advice: When in bed, try to find a position of comfort. A firm mattress is best. Try lying flat on your back with pillows under your knees. You can also try lying on your side with your knees bent up toward your chest and a pillow between your knees. At first, don't try to stretch out the sore spots. If there is a strain, it's not like the good soreness you get after exercising without an injury. In this case, stretching may make it worse. Don't sit for long periods, as in a long car ride or during other travel. This puts more stress on the lower back than standing or walking. During the first 24 to 72 hours after an acute injury or flare up of chronic back pain, apply an ice pack to the painful area for 20 minutes and then remove it for 20 minutes. Do this over a period of 60 to 90 minutes or several times a day. This will reduce swelling and pain. Wrap the ice pack in a thin towel or plastic to protect your skin. You can start with ice, then switch to heat. Heat (hot shower, hot bath, or heating pad) reduces pain and works well for muscle spasms. Heat can be applied to the painful area for 20 5 General Instructions [facility] Emergency Department [address] [place] [address] Phone #: ext- [phone] 01/26/2021 13:34 Patient: DARCIE ANDERSON Sex: F : 1990 Age: 30y minutes then remove it for 20 minutes. Do this over a period of 60 to 90 minutes or several times a day. Don't sleep on a heating pad. It can lead to skin gay or tissue damage. You can alternate ice and heat therapy. Talk with your doctor about the best treatment for your back pain. Therapeutic massage can help relax the back muscles without stretching them. Be aware of safe lifting methods and don't lift anything without stretching first.MedicinesTalk to your doctor before using medicine, especially if you have other medical problems or are takingother medicines. You may use qdcn-sjm-njgyjsg medicine as directed on the bottle to control pain, unless another pain medicine was prescribed. If you have chronic conditions like diabetes, liver or kidney disease, stomach ulcers, or gastrointestinal bleeding, or are taking blood thinners, talk to your doctor before taking any medicine. Be careful if you are given a prescription medicines, narcotics, or medicine for muscle spasms. They can cause drowsiness, affect your coordination, reflexes, and judgement. Don't drive or operate heavy machinery.Follow-up careFollow up with your healthcare provider, or as advised.If X-rays were taken, you will be told of any new findings that may affect your careCall 911Call 911 if any of the following occur: Trouble breathing Confusion Very drowsy or trouble awakening Fainting or loss of consciousness Rapid or very slow heart rate Loss of bowel or bladder controlWhen to seek medical advice 6 General Instructions [facility] Emergency Department [address] [place] [address] Phone #: ext- [phone] 01/26/2021 13:34 Patient: DARCIE ANDERSON Sex: F : 1990 Age: 30yCall your healthcare provider right away if any of these occur: Pain becomes worse or spreads to your legs Weakness or numbness in one or both legs Numbness in the groin or genital area [phone] [employer]. [address] [place] [address]. All rights reserved. This information is not intended as asubstitute for professional medical care. Always follow your healthcare professional's instructions.Ovarian CystsThe ovaries are two small organs located on each side of a woman's uterus (womb). They are part ofthe female reproductive system. Ovarian cysts are sacs filled with fluid or tissue that form on or insidethe ovaries.Ovarian cysts are common in women, especially during childbearing years. There are different typesof cysts. Most are harmless (benign) and go away on their own. They often cause no symptoms. Ifsymptoms do occur, they can include mild pain or pressure in the lower belly (abdomen).Cysts that are large or break (rupture) may cause more severe pain and symptoms. In these cases,you may need hospital care or treatment such as surgery. You may need more extensive treatment ifa cyst causes an ovary to twist (called torsion) or if your doctor suspects your cyst is cancerous. Keepin mind that most cysts are not cancerous, however.General care To help relieve pain, your healthcare provider may recommend using leom-rby-ngwwmgc pain 7 General Instructions [facility] Emergency Department [address] [place] [address] Phone #: ext- [phone] 01/26/2021 13:34 Patient: DARCIE ANDERSON Sex: F : 1990 Age: 30y medicine. If needed, your provide may prescribe stronger pain medicine. Depending on the type of cyst you have, your healthcare provider may advise taking control pills. These help shrink cysts in certain cases. They may also help prevent new cysts from forming. Be sure to take these medicines as directed if they are prescribed. Your healthcare provider may advise you to watch your symptoms over time to see if they go away or worsen. Regular ultrasound tests may also be advised. These can help check if a cyst goes away or grows in size.Follow- up careFollow up with your healthcare provider, or as advised.When to seek medical adviceCall your healthcare provider right away if any of these occur: Pain worsens or fails to get better with home treatment Fever of 100.4F (38C) or higher (or other fever amount directed by your healthcare provider) Nausea and vomiting Weakness, dizziness, or fainting Abnormal vaginal bleeding [id number] [employer] [address] [place] [address]. All rights reserved. This information is not intended as asubstitute for professional medical care. Always follow your healthcare professional's instructions. You have been given the following additional information: Muscle Strain, Extremity Back Pain (Acute or Chronic) Ovarian Cyst No lifting greater than 5 lbs until well. No strenuous activity. Do not work for three days.(Electronically signed by Xochilt Patterson MD 01/26/2021 20:05) 8 General Instructions [facility] Emergency Department [address] [place] [address] Phone #: ext- [phone] 01/26/2021 13:34 Patient: DARCIE ANDERSON Sex: F : 1990 Age: 30y Name Value Range Interpretation Code Description Data Rosa Maria rce(s) Supporting Document(s) ID Date Data Source [id number] 01/26/2021 01:41:00 PM EDT [facility] 1 Clinical Report - Nurses [facility] Emergency Department [address] [place] [address] Phone #: ext- [phone] 01/26/2021 13:34 Patient: DARCIE ANDERSON Sex: F : 1990 Age: 30yTRIAGEArrived by private vehicle. Historian: patient. Accompanied by spouse.Triage time: late entry - 13:47 01/26/2021. Acuity: LEVEL 4.Chief Complaint: BACK PAIN.Alert. No acute distress.Onset. (2 days ago). ( Pt states she started having right lower back pain 2 days ago, no known injury,denies history of nephrolithiasis or kidney infection; Pt [facility] at [facility] yesterday for long period and wasnot seen. Pt denies all other symptoms, denies urinary symptoms. Pt states she has "stomachproblems" and states she is currently seeing GI). No history of recent trauma.Treatment FOOT DOCTOR:None.SEPSIS SCREEN: SIRS SCREEN NEGATIVE. SEPSIS SCREEN NEGATIVE. No suspected or conf irmedsigns of infection present. (13:53 01/26/2021). --13:53 01/26/21 Nuvia Mark R.N.13:49 01/26/21. BP: 113/69. MAP: 83. HR: 73. RR: 18. O2 saturation: 99% on room air. Temp: 98.3 F(temporal). Pain level now: 05/12. --13:53 01/26/21 Nuvia Mark R.N.Weight: 78.9 kg stated. Height/Length: 66 inches Per Patient. BMI: 28.1. --13:47 01/26/21 Nuvia Mark R.N.MedicationsNone. --13:52 01/26/21 Nuvia Mark R.N.AllergiesNo Known Drug Allergy. --13:52 01/26/21 Nuvia Mark R.N.PROBLEMS:no known problems.Medication/allergy information source: the patient. --13:53 01/26/21 Nuvia Mark R.N.ADDITIONAL SURGERIES:Hysterectomy. --13:52 01/26/21 Mercer, Nuvia, R.N.HistoryPAST MEDICAL HX: Tetanus status: up-to-date. Immunizations: up-to-date. The patient has had a 2 Clinical Report - Nurses [facility] Emergency Department [address] [place] [address] Phone #: ext- [phone] 01/26/2021 13:34 Patient: DARCIE ANDERSON Sex: F : 1990 Age: 30y hysterectomy. SOCIAL HX: Never smoker. No alcohol use or drug use. She was offered HIV testing but declined. Patient education was provided. She was offered hepatitis C testing but declined. Patient education was provided. ( COVID screen negative). She has not traveled outside the [place] Infectious disease exposure: No infectious disease exposure. The patient was not exposed to Coronavirus. Mask placed on patient. Patient is not a known carrier of tuberculosis, hepatitis, HIV, MRSA or VRE. Patient is not a known carrier of CRE. SELF HARM ASSESSMENT: Self harm assessment was performed. The patient answered "no" to the question(s) "Do you have thoughts of harming or killing yourself?" and "Do you have a plan for harming or killing yourself?". ABUSE ASSESSMENT: Abuse assessment. The patient had positive responses to the question(s) "Do you feel safe in your home?". Abuse denied. No suspicion of abuse. No report of abuse. NUTRITIONAL RISK ASSESSMENT: The nutritional risk assessment revealed no deficiencies. FUNCTIONAL ASSESSMENT: Functional assessment: no impairments noted. LEARNING NEEDS ASSESSMENT: The learning needs assessment revealed no barriers. FALL RISK ASSESSMENT: Fall risk assessment completed. No risk factors identified. SKIN INTEGRITY ASSESSMENT: Skin integrity risk assessment completed. No skin integrity risk identified. --13:53 01/26/21 Nuvia Mark R.N. Interventions Identification band on patient. --13:53 01/26/21 Nuvia Mark R.N.PHYSICAL [id number]:20 01/26/21. Ambulatory to room.GENERAL / NEURO / PSYCH: Alert. Oriented X 4. Appears in no acute distress.RESPIRATORY: Respirations not labored. Chest nontender. Breath sounds within normal limits.CVS: Normal heart rate and rhythm.GI / : Abdomen soft and nontender.EXTREMITIES: Sensation intact in extremities. ROM of extremities within normal limits.BACK: Normal inspection of the neck and back. Vertebral point tenderness over the lumbar spine. Softtissue tenderness in the right lower and left lower lumbar paraspinous region. --14:54 01/26/21 PAZ Frias.NURSING PROGRESS NOTESPatient ID band checked for patient name and birthdate: patient confirmed. Instructions provided to collectclean catch urine and patient verbalized understanding. Clean catch urine collected; sample sent to lab forurinalysis. Specimen labeled in the presence of the patient. --14:11 01/26/21 Nuvia Mark R.N. 3 Clinical Report - Nurses [facility] Emergency Department [address] [place] [address] Phone #: ext- [phone] 01/26/2021 13:34 Patient: DARCIE ANDERSON MRN: [id number] Sex: F : 1990 Age: 30y 14:20 01/26/21. Two patient identifiers checked. Bed placed in lowest position. Brakes of bed on. Patient ready for evaluation- ED physician and PA notified. --14:52 01/26/21 Erin Sullivan RN 15:13 01/26/2021 Site #1 started via IV in the right antecubital space with an 20g angiocath, with aseptic technique and good blood return; one attempt. Saline lock flushed with 10 mL saline. --15:23 01/26/21 Erin Sullivan RN 15:14 01/26/2021 Toradol (Ketorolac Tromethamine) IVP 30 mg given over 1 minute(s) via site #1. Allergies verified and confirmed 5 rights. IV patency established. IV site checked: no pain, redness, or swelling. IV flushed thoroughly pre- and post-medication administration. IVP given by RN. Information reviewed with patient including reason for taking this medication, signs of allergic reaction and precautions. Verbalizes understanding. --15:24 01/26/21 Erin Sullivan RN 15:15 01/26/2021 V alium (diazePAM) PO Tablets 5 mg given. Allergies verified and confirmed 5 rights. Information reviewed with patient including reason for taking this medication, signs of allergic reaction, precautions and sedative warning. Verbalizes understanding. --15:24 01/26/21 Erin Sullivan RN 15:15 01/26/2021 Acetaminophen * Drip IV 1000 mg Now x 1, 1000 mg in 100 ml, infuse over 15 minutes --15:26 01/26/21 Erin Sullivan RN 15:29 01/26/2021 Toradol IVP Response: no adverse reaction pain is improving. Symptoms have improved the patient feels better. --16:25 01/26/21 Erin Sullivan RN 15:30 01/26/2021 Acet aminophen Drip IV Discontinued: completed. Total amount infused: 100 mL. IV patency established. IV site checked: no pain, redness, or swelling. IV flushed thoroughly. --15:42 01/26/21 Erin Sullivan RN 15:33 01/26/21. Patient transported to [place] by wheelchair with mask and manufacturing technician. --15:33 01/26/21 Erin Sullivan RN 15:45 01/26/21. Patient returned from [place] by wheelchair with mask and manufacturing technician. --16:13 01/26/21 Erin Sullivan RN 16:15 01/26/2021 Valium PO Response: no adverse reaction pain is improving. Symptoms have improved the patient feels better. --16:25 01/26/21 Erin Sullivan RN 16:24 01/26/21. The patient reports no complaints and she is calm and resting quietly. BACK: The patient reports back pain is still present but improving. --16:26 01/26/21 Erin Sullivan RN.DISPOSITION / DISCHARGE 16:55 01/26/2021 Site #1 removed upon discharge. Manual pressure and bandaid applied. --16:55 01/26/21 [facility] Clinical Report - Nurses [facility] Emergency Department [address] [place] [address] Phone #: ext- [phone] 01/26/2021 13:34 [id number] Sex: F : 1990 Age: 30y 16:55 01/26/21. BP: 113/78. HR: 70. RR: 16. O2 saturation: 100%. Temp: 98.1 F. Pain level now 12/10. --16:56 01/26/21 [facility] 17:00 01/26/21. Condition at departure: improved and stable. No learning barriers present. Discharge instructions provided and reviewed with the patient. Reviewed medication(s) side effects, precautions, dosing and course information. Prescription(s) sent electronically to pharmacy ([facility]). Activity restrictions (light lifting) reviewed (no greater than 5 lbs). Work note given (off x 3 days). Patient verbalized understanding. Written instructions provided in Chinese. The patient was discharged home and accompanied by spouse. She left ambulatory and via private vehicle. Spouse driving. --17:04 01/26/21 Erin Sullivan RN.Locked/Released at 01/26/2021 17:06 by Erin Sullivan RN Name Value Range Interpretation Code Description Data Rosa Maria rce(s) Supporting Document(s) ID Date Data Source [id number] 01/26/2021 01:41:00 PM EDT [facility] 1 Clinical Report - Physicians/Mid Levels [facility] Emergency Department [address] [place] [address] Phone #: ext- [phone] 01/26/2021 13:34 Patient: DARCIE ANDERSON Sex: F : 1990 Age: 30y Arrived- By private vehicle. Historian- patient and family. Disposition decision: 16:49 01/26/2021.HISTORY OF PRESENT ILLNESS Chief Complaint: BACK PAIN. It is described as being moderate in degree and in the area of the right mid lumbar spine and right lower lumbar spine. The quality is noted to be aching. Onset- 2 days and it is still present. No bladder dysfunction, bowel dysfunction, sensory loss or motor loss. Additional history - Onset. (2 days ago). ( Pt states she started having right lower back pain 2 days ago, no known injury, denies history of nephrolithiasis or kidney infection; Pt [facility] at [facility] yesterday for long period and was not seen. Pt denies all other symptoms, denies urinary symptoms. Pt states she has "stomach problems" and states she is currently seeing GI). No history of recent trauma. Patient denies an injury. Mechanism of injury- (unknown). No injury to the head or neck. Similar symptoms previously. None. Recent medical care: Not recently seen/assessed.REVIEW OF SYSTEMSNo fever, chills, eye irritation or difficulty with urination or urination. No urinary frequency or urinaryfrequency, hematuria, headache or depression. No sore throat or throat, cough or difficulty breathing. Nochest pain or pain, abdominal pain, nausea or vomiting. No diarrhea, black stools, bloody stools, chills orfever. No decreased vision, double vision, photophobia, ear pain or hearing loss. No tinnitus, epistaxis,run ny nose, sinus pain or cough. No difficulty breathing, constipation, diarrhea, nausea or vomiting. Nohematuria, neck pain, skin rash, dizziness or headache. No seizure, weakness or easy bruising. Thepatient has had abdominal pain and back pain but no pain on weight bearing.PAST HISTORYSee nurses notes. Problems: no known problems. Additional Surgeries: Hysterectomy. Medications: None. Allergies: No Known Drug Allergy. 2 Clinical Report - Physicians/[facility] Emergency Department [address] [place] [address] Phone #: ext- [phone] 01/26/2021 13:34 Patient: DARCIE ANDERSON Sex: F : 1990 Age: 30ySOCIAL HISTORYNo drug use.ADDITIONAL NOTESThe nursing notes have been reviewed.PHYSICAL EXAMVital Signs: 01/26/2021 16:55 BP: 113/78. MAP: 89. HR: 70. RR: 16. O2 saturation: 100%. Temp: 98.1 F.01/26/2021 13:49 BP: 113/69. MAP: 83. HR: 73. RR: 18. O2 saturation: 99% on room air. Temp: 98.3 F.Pain level now: 05/12. Have been reviewed and appear to be correct. Blood pressure normal. Meanarterial pressure- normal. Respiratory rate normal. Temperature normal. Oxygen saturation normal.Appearance: Alert. No acute distress.HEENT: Normal external inspection.Eyes: Pupils equal, round and reactive to light.ENT: Pharynx normal.Neck: Normal inspection. Neck nontender. Painless ROM.CVS: Heart sounds normal. Pulses normal.Respiratory: No respiratory distress. Painless inspiration. Breath sounds normal.Abdomen: No visible injury. Soft. Mild tenderness in the suprapubic area.Back: Normal inspection. Mild muscle spasm of the back (rt lumbar spine). Painless ROM.Skin: Skin warm and dry. Normal skin color. No rash. Normal skin turgor.Extremities: Extremities exhibit normal ROM. Extremities nontender.Neuro: Oriented X 3. Mood/affect normal. No motor deficit. No sensory deficit.LABS, X-RAYS, AND EKGLaboratory Tests: CBC w Diff: (THEA: 01/26/2021 15:10) ( MsgRcvd 01/26/2021 15:24) Final results Test Result Flag Units (Reference) CBC W/AUTOMATED DIFF COMPL ETE BLOOD COUNT WBC 6.2 10/uL (4.2 - 11.0) RBC 4.57 10/uL (4.20 - 5.40) HEMOGLOBIN 14.3 g/dL (12.0 - 16.0) HEMATOCRIT 40.7 % (37.0 - 47.0) MCV 89.1 fL (81.0 - 101) MCH 31.3 pg (27.0 - 34.0) MCHC 35.1 g/dL (31.0 - 36.0) RDW 11.6 % (11.5 - 14.5) PLATELETS 209 10/uL (150 - 450) MPV 10.7 H fL (7.4 - 10.4) NEUT 50.6 % (37.0 - 80.0) LYMPH 37.7 % (25.0 - 40.0) MONO 8.5 H % (3.0 - 8.0) EOS 2.3 % (0.0 - 7.0) BASO 0.6 % (0.0 - 2.5) %IG 0.3 H % (0.0 - 0.0) %NRBC 0.0 % (0.0 - 0.0) #NEUT 3.14 10/uL (2.00 - 6.90) #LYMPH 2.34 10/uL (0.60 - 3.40) 3 Clinical Report - Physicians/Mid Levels [facility] Emergency Department [address] [place] [address] Phone #: ext- [phone] 01/26/2021 13:34 Patient: DARCIE ANDERSON Sex: F : 1990 Age: 30y #MONO 0.53 10/uL (0.00 - 0.90) #EOS 0.14 10/uL (0.00 - 0.70) #BASO 0.04 10/uL (0.00 - 0.20) #IG 0.02 10/uL (0.00 - 0.10) #NRBC 0.00 10/uL (0.00 - 0.00) MANUAL DIFF NOT INDICATED RBC MORPH NOT INDICATEDCMP: (THEA: 01/26/2021 15:54) ( MsgRcvd 01/26/2021 16:35) Final results Test Result Flag Units (Reference) COMPREHENSIVE METABOLIC PANEL COMPREHENSIVE METABOLIC PANEL SODIUM 138 mEq/L (134 - 153) POTASSIUM 3.9 mEq/L (3.6 - 5.0) CHLORIDE 103 mEq/L (98 - 107) CO2 28 MEQ/L (22 - 30) GLUCOSE 68 L MG/DL (70 - 99) BUN 11 MG/DL (7 - 21) CREATININE 0.8 MG/DL (0.7 - 1.5) BUN/CREAT 14 (8 - 27) TOTAL PROTEIN 6.8 G/DL (6.3 - 8.2) ALBUMIN 3.9 G/DL (3.9 - 5.0) GLOBULIN 2.9 GM/DL (2.4 - 3.2) A/G RATIO 1.3 (0.8 - 2.0) CALCIUM 8.8 MG/DL (8.4 - 10.2) TOTAL BILI <0.7 MG/DL (0.2 - 1.3) ALKALINE PHOS 70 U/L (38 - 126) SGOT/AST 13 U/L (5 - 40) SGPT/ALT 11 U/L (7 - 56) ANION GAP 7.0 L mmol/L (8.0 - 16.0) AGE 30 yrs NON- AA GFR >60 mL/min AFR AMER GFR >60 mL/min Male GFR Interprentation 20-49 yrs >60 mL/min Aqctoh98-29 yrs >56 mL/min Normal 60- 69 yrs >49 mL/min Normal 70-79yrs>42 mL/min Normal 80 and above >35 mL/min Normal Female GFRInterpretation 20-39 yrs >60 mL/min Normal 40-49 yrs >58 mL/minNormal 50-59 yrs >51 mL/min Normal 60-69 yrs >45 mL/min Fpwrkr06-40 yrs >39 mL/min Normal 80 and above >32 mL/min NormalCT Abd PEL W/ IV Contrast Only: (THEA: 01/26/2021 14:58) ( Msg Rcvd 01/26/2021 16:11) In ProgressCT ABDReason(s): Abdominal PainTRANSPORTATION: WC IV? IV?(Yes) O2? Oxygen?(No) Ro: No CMTS: hysterectomy 04/21Urinalysis: (THEA: 01/26/2021 14:10) ( MsgRcvd 01/26/2021 14:22) Final results Test Result Flag Units (Reference) URINALYSIS URINALYSIS SOURCE R COLOR yellow (NORMAL: Yello CLARITY clear (NORMAL: Clear SPEC GRAVITY 1.010 (1.001 - 1.030 pH 8 (5 - 9) 4 Clinical Report - Physicians/Mid Levels [facility] Emergency Department [address] [place] [address] Phone #: ext- [phone] 01/26/2021 13:34 Patient: DARCIE ANDERSON Sex: F : 1990 Age: 30y GLUCOSE NORM (NORMAL: Negat BILIRUBIN NEG (NORMAL: Negat KETONE NEG (NORMAL: Negat PROTEIN NEG (NORMAL: Negat NITRITE NEG (NORMAL: Negat BLOOD NEG (NORMAL: Negat LEUK EST NEG (NORMAL: Negat UROBILINOGEN NOR (less than 1.0 MICROSCOPIC Not Indicate.PROGRESS AND PROCEDURESCourse of Care: Pt is a 30 year old female who presents with non- traumatic back pain. [facility] she was not seen and left. she presented to [facility]. on exam, she has tenderness to palpation to her right latissimus dorsi. she also had sometenderness to her suprapubic area. labs are grossly nl. her glc was slightly low. her ct showed no acuteintraabdominal findings. she does have an ovarian cyst. pt was given ivf, iv toradol, iv acetaminophenand valium po. pt felt markedly better. her arrived towards the end of pt's ed stay. he will driveher home. pt was encouraged to f/u with pcp and to return if worse. rx for flexeril written. Patient/family counseled. Disposition: Condition: good and stable.CLINICAL IMPRESSION Muscle strain of the low back. Left ovarian cyst.INSTRUCTIONS No lifting greater than 5 lbs until well. No strenuous activi ty. Do not work for three days. (Take tylenol, motrin and flexeril as instructed. return if worse or any new symptoms. Take all medications as previously instructed. Please follow up with gynecology regarding your ovarian cyst on the left measuring 3.3cmx 2.6cm.). Warnings: GENERAL WARNINGS: Return or contact your physician immediately if your condition worsens or changes unexpectedly, if not improving as expected, or if other problems arise. Your Current Medications: . No home medication. Prescription Medications: cyclobenzaprine 10 mg tablet Take 1 tablet every eight hours as needed for pain for 5 days -- prn muscle 5 Clinical Report - Physicians/Mid Levels [facility] Emergency Department [address] [place] [address] Phone #: ext- [phone] 01/26/2021 13:34 Patient: DARCIE ANDERSON Sex: F : 1990 Age: 30y spasms. Dispense 15 tablet. Refills: 0. Substitution permitted. Note to Pharmacy - Rx DISCOUNT CARD: $ 5.66. USE: BIN:[id number], BRITTN:DL, Group:[id number], ID:[id number]. Pharmacy - [id number] - [address], [place] [id number]. . Follow-up: Follow up with your doctor Saturday. Call for an appointment. Reason for referral: evaluation. Summary of care provided to patient via paper. Understanding of the discharge instructions verbalized by patient.(Electronically signed by Xochilt Patterson MD 01/26/2021 20:05) Name Value Range Interpretation Code Description Data Rosa Maria rce(s) Supporting Document(s) ID Date Data Source [id number] 01/26/2021 04:35:00 PM EDT [facility] Name Value Range Interpretation Code Description Data Rosa Maria rce(s) Supporting Document(s) COMPREHENSIVE METABOLIC PANEL [facility] COMPREHENSIVE METABOLIC PANEL Sodium [Moles/volume] in Serum or Plasma 138 mEq/L 134 - 153 [facility] Potassium [Moles/volume] in Serum or Plasma 3.9 mEq/L 3.6 - 5.0 [facility] Chloride [Moles/volume] in Serum or Plasma 103 mEq/L 98 - 107 [facility] Carbon dioxide, total [Moles/volume] in Serum or Plasma 28 MEQ/L 22 - 30 [facility] Glucose [Mass/volume] in Serum or Plasma 68 MG/DL 70 - 99 L [facility] BUN 11 MG/DL 7 - 21 [facility] al Creatinine [Mass/volume] in Serum or Plasma 0.8 MG/DL 0.7 - 1.5 [facility] BUN/CREAT 14 8 - 27 [facility] Protein [Mass/volume] in Serum or Plasma 6.8 G/DL 6.3 - 8.2 [facility] Albumin [Mass/volume] in Serum or Plasma 3.9 G/DL 3.9 - 5.0 [facility] Globulin [Mass/volume] in Serum by calculation 2.9 GM/DL 2.4 - 3.2 [facility] A/G RATIO 1.3 0.8 - 2.0 [facility] Calcium [Mass/volume] in Serum or Plasma 8.8 MG/DL 8.4 - 10.2 [facility] Bilirubin.total [Mass/volume] in Serum or Plasma <0.7 MG/DL 0.2 - 1.3 [facility] Alkaline phosphatase [Enzymatic activity/volume] in Serum or Plasma 70 U/L 38 - 126 [facility] Aspartate aminotransferase [Enzymatic activity/volume] in Serum or Plasma 13 U/L 5 - 40 [facility] Alanine aminotransferase [Enzymatic activity/volume] in Seru m or Plasma 11 U/L 7 - 56 [facility] Anion gap 3 in Serum or Plasma 7.0 mmol/L 8.0 - 16.0 L [facility] AGE 30 yrs [facility] Hospit al NON-AA GFR >60 mL/min [facility] Hosp ital AFR AMER GFR >60 mL/min [facility] Ho spital Male GFR In terprentation 20-49 yrs >60 mL/min Normal 50-59 yrs >56 mL/min Normal 60-69 yrs >49 mL/min Normal 70-79yrs >42 mL/min Normal 80 and above >35 mL/min Normal Female GFR Interpretation 20-39 yrs >60 mL/min Normal 40-49 yrs >58 mL/min Normal 50-59 yrs >51 mL/min Normal 60-69 yrs >45 mL/min Normal 70-79 yrs >39 mL/min Normal 80 and above >32 mL/min Normal ID Date Data Source [id number] 01/26/2021 10:24:00 PM EDT [facility] Name Value Range Interpretation Code Description Data Rosa Maria rce(s) Supporting Document(s) LACTIC ACID (LACTATE) [facility] [place] [address] CLIA# [id number] SEE SCANNED REPORT ID Date Data Source [id number] 01/26/2021 03:22:00 PM EDT [facility] Name Value Range Interpretation Code Description Data Rosa Maria rce(s) Supporting Document(s) CBC W/AUTOMATED DIFF [facility] COMPLETE BLOOD COUNT Leukocytes [#/volume] in Blood by Automated count 6.2 10^3/uL 4.2 - 1 1.0 [facility] Erythrocytes [#/volume] in Blood by Automated count 4.57 10^6/uL 4. 20 - 5.40 [facility] Hemoglobin [Mass/volume] in Blood 14.3 g/dL 12.0 - 16.0 [facility] Hematocrit [Volume Fraction] of Blood by Automated count 40.7 % 3 7.0 - 47.0 [facility] Erythrocyte mean corpuscular volume [Entitic volume] by Auto mated count 89.1 fL 81.0 - 101 [facility] Erythrocyte mean corpuscular hemoglobin [Entitic mass] by Automated count 31.3 pg 27.0 - 34.0 [facility] Erythrocyte mean corpuscular hemoglobin concentration [Mass/volume] by Automated count 35.1 g/dL 31.0 - 36.0 [facility] Erythrocyte distribution width [Ratio] by Automated count 11.6 % 11.5 - 14.5 [facility] Platelets [#/volume] in Blood by Automated count 209 10^3/uL 150 - 45 0 [facility] Platelet mean volume [Entitic volume] in Blood by Automated count 10.7 fL 7.4 - 10.4 H [facility] Neutrophils/100 leukocytes in Blood by Automated count 50.6 % 37. 0 - 80.0 [facility] Lymphocytes/100 leukocytes in Blood by Manual count 37.7 % 25.0 - 40.0 [facility] Monocytes/100 leukocytes in Blood by Automated count 8.5 % 3.0 - 8.0 H [facility] Eosinophils/100 leukocytes in Blood by Automated count 2.3 % 0.0 - 7.0 [facility] Basophils/100 leukocytes in Blood by Automated count 0.6 % 0.0 - 2.5 [facility] %IG 0.3 % 0.0 - 0.0 H [facility] al %NRBC 0.0 % 0.0 - 0.0 [facility] al Neutrophils [#/volume] in Blood by Automated count 3.14 10^3/uL 2.00 - 6.90 [facility] Lymphocytes [#/volume] in Blood by Automated count 2.34 10^3/uL 0.60 - 3.40 [facility] Monocytes [#/volume] in Blood by Automated count 0.53 10^3/uL 0.00 - 0.90 [facility] Eosinophils [#/volume] in Blood by Automated count 0.14 10^3/uL 0.00 - 0.70 [facility] Basophils [#/volume] in Blood by Automated count 0.04 10^3/uL 0.00 - 0.20 [facility] #IG 0.02 10^3/uL 0.00 - 0.10 [facility] H ospital #NRBC 0.00 10^3/uL 0.00 - 0.00 [facility] ospital MANUAL DIFF NOT INDICATED [facility] RBC MORPH NOT INDICATED [facility] Ho spital ID Date Data Source [id number] 01/26/2021 02:22:00 PM EDT [facility] Name Value Range Interpretation Code Description Data Rosa Maria rce(s) Supporting Document(s) URINALYSIS [facility] Hospi collette [facility] yellow NORMAL: Yellow [facility] ospital CLARITY clear NORMAL: Clear [facility] Ho spital Specific gravity of Urine by Test strip 1.010 1.001 - 1.030 [facility] pH 8 5 - 9 [facility] al Glucose [Mass/volume] in Urine by Test strip NORM NORMAL: Negat [facility] Bilirubin.total [Presence] in Urine by Test strip NEG NORMAL: Negative [facility] Ketones [Presence] in Urine by Test strip NEG NORMAL: Negative [facility] Protein [Mass/volume] in Urine by Test strip NEG NORMAL: Negat [facility] Nitrite [Presence] in Urine by Test strip NEG NORMAL: Negative [facility] BLOOD NEG NORMAL: Negative [facility] Leukocyte esterase [Presence] in Urine by Test strip NEG XOCHILT L: Negative [facility] Urobilinogen [Mass/volume] in Urine by Test strip NOR less kaveh n 1.0 mg/dL [facility] MICROSCOPIC Not Indicate [facility] ospital Procedure Social History No Information Vital Signs ID Date Data Source UNK Name Value Range Interpretation Code Description Data Source(s) Body height 66 [in_i] 66 [in_i] [facility] ([facility], ) 5'6" Body weight 175.00 [lb_av] 175.00 [facility]_av[facility] Body mass index (BMI) [Ratio] 28.2 kg/m2 28.2 k g/m2 [facility] ([facility]) [place] body weight 130 [lb_av] 130 [lb_av] MEDEN T ([facility]) Body weight 79.380 kg 79.380 kg [facility] ([facility]) Body surface area Derived from formula 1.89 m2 1.89 m2 [facility] ([facility]) Systolic blood pressure 126 mm[Hg] 126 mm[Hg] M EDENT ([facility]) Diastolic blood pressure 69 mm[Hg] 69 mm[Hg] [facility] ([facility]) Diastolic blood pressure 89 mm[Hg] 89 mm[Hg] [facility] ([facility]) Body height 66 [in_i] 66 [in_i] [facility] ([facility]) Systolic blood pressure 131 mm[Hg] 131 mm[Hg] A THENA ([facility]) Diastolic blood pressure 89 mm[Hg] 89 mm[Hg] [facility] ([facility]) Body height 66 [in_i] 66 [in_i] [facility] ([facility]) Systolic blood pressure 131 mm[Hg] 131 mm[Hg] A THENA ([facility]) Diastolic blood pressure 81 mm[Hg] 81 mm[Hg] [facility] ([facility]) Body height 66 [in_i] 66 [in_i] [facility] ([facility]) Body mass index (BMI) [Ratio] 28.6 kg/m2 28.6 k g/m2 [facility] ([facility]) Systolic blood pressure 126 mm[Hg] 126 mm[Hg] A THENA ([facility]) Body weight 177 [lb_av] 177 [lb_av] [facility] ([facility]) Diastolic blood pressure 81 mm[Hg] 81 mm[Hg] [facility] ([facility]) Body height 66 [in_i] 66 [in_i] [facility] ([facility]) Body mass index (BMI) [Ratio] 28.6 kg/m2 28.6 k g/m2 [facility] ([facility]) Systolic blood pressure 126 mm[Hg] 126 mm[Hg] A THENA ([facility]) Body weight 177 [lb_av] 177 [lb_av] [facility] ([facility]) Diastolic blood pressure 81 mm[Hg] 81 mm[Hg] [facility] ([facility]) Body height 66 [in_i] 66 [in_i] [facility] ([facility]) Body mass index (BMI) [Ratio] 28.6 kg/m2 28.6 k g/m2 [facility] ([facility]) Systolic blood pressure 126 mm[Hg] 126 mm[Hg] A THENA ([facility]) Body weight 177 [lb_av] 177 [lb_av] [facility] ([facility]) Diastolic blood pressure 81 mm[Hg] 81 mm[Hg] [facility] ([facility]) Body height 66 [in_i] 66 [in_i] [facility] ([facility]) Body mass index (BMI) [Ratio] 28.6 kg/m2 28.6 k g/m2 [facility] ([facility]) Systolic blood pressure 126 mm[Hg] 126 mm[Hg] A THENA ([facility]) Body weight 177 [lb_av] 177 [lb_av] [facility] ([facility]) Patient Treatment Plan of Care Planned Activity Planned Date Details Description Data Source (s) gabapentin 300 MG Oral Capsule [facility] ([facility]) gabapentin 300 MG Oral Capsule [facility] ([facility])
--- OUTSIDE RECORDS SUMMARY | 2021-08-04 10:32 | CCD | Continuity of Care Document ---
Author Author Praveena CHILEL MD Organization Unknown Address [address] [place] [address] Phone [phone] Care Team Providers Care Necktie Turner Name Role Phone Massimo Alford D.O. Unavailable Problems Description No Information Available Social History Type Date Description Comments Sex Unknown ETOH Use Denies alcohol use Tobacco Use Start: Unknown Non Smoker Allergies, Adverse Reactions, Alerts Description No Known Drug Allergies Medications Active Medications SIG Qnty Indications Ordering Provide r Date Milk Of Magnesia 1200mg/15ML Suspe nsion take 45 milliliters by mouth as directed on colonoscopy prep sheet. 355ml R14.2 Nicanor Chilel MD 04/25/2021 Miralax 17GM/Scoop Powder use as directed see dr chilel colon preparation instructions 510gm R14.2 Zachariah armaan Chilel MD 04/25/2021 Dicyclomine HCL 20mg Tablets take 1 tablet by mouth 4 times a day as needed (1/2 hour before meal) for abdominal pain/diarrhea/spasm 60tabs R14.2 Nicanor Chilel MD 04/25/2021 Estrogen Unknown Immunizations Description No Information Available Vital Signs Date Vital Result Comment 04/25/2021 1:49pm BP Systolic 126 mmHg BP Diastolic 69 mmHg Height 66 inches 5'6" Weight 175.00 lb BMI (Body Mass Index) 28.2 kg/m2 Avenue Body Weight 130 lb Weight 79.380 kg BSA (Body Surface Area) 1.89 m2 Results Test Acquired Date Facility Test Result H/L Range Note Gastrointestinal (GI) Panel 04/27/2021 [facility] Main Lab [address] [place], [place] [id number] [phone] Gastrointestinal (GI) Panel This Gastrointes <SEE NOTE > 1 Laboratory test finding 04/27/2021 [facility] Main Lab [address] [place] [address] [phone] Calprotectin Stool <16 ug/g Normal 0-120 2 Pancreatic Elastase Stool >500 Normal >200 3 Laboratory test finding 04/25/2021 [facility] Main Lab [address] [place], [place] [address] [phone] Gastrin 17 pg/mL Normal 0-115 4 Chromogranin A 38.5 ng/mL Normal 0.0-101.8 5 Comprehensive Metabolic Profil 04/25/2021 [facility] Main Lab [address] [place] [address] [phone] Glucose, Fasting 79 mg/dL Normal 70-100 Blood Urea Nitrogen 13 mg/dL Normal 7-18 Creatinine For GFR 0.82 mg/dL Normal 0.55-1.30 Glomerular Filtration Rate > 60.0 Normal >60 6 Sodium Level 137 mEq/L Normal 136-145 Potassium Serum 3.8 mEq/L Normal 3.5-5.1 Chloride Level 106 mEq/L Normal 98-107 Carbon Dioxide Level 28 mEq/L Normal 21-32 Anion Gap 3 mEq/L Low 8-16 Calcium Level 8.7 mg/dL Normal 8.5-10.1 Ast/Sgot 13 U/L Normal 7-37 Alt/SGPT 26 U/L Normal 12-78 Alkaline Phosphatase 58 U/L Normal 45-117 Bilirubin,Total 0.5 mg/dL Normal 0.2-1.0 Total Protein 7.7 GM/DL Normal 6.4-8.2 Albumin 3.9 GM/DL Normal 3.2-5.2 Albumin/Globulin Ratio 1.0 Low 1.2-2.2 CBC With Differential 04/25/2021 [facility] Main Lab [address] [place] [address] [phone] White Blood Count 4.6 10 Normal 4.0-10.0 Red Blood Count 4.77 10 Normal 4.00-5.40 Hemoglobin 14.5 g/dL Normal 12.0-15.5 Hematocrit 43.3 % Normal 36.0-47.0 Mean Corpuscular Volume 90.8 fl Normal 80.0-96.0 Mean Corpuscular Hemoglobin 30.4 pg Normal 27.0-33.0 Mean Corpuscular HGB Conc 33.5 g/dL Normal 32.0-36.5 Red Cell Distribution Width 11.7 % Normal 11.5-14.5 Platelet Count, Automated 213 10 Normal 150-450 Neutrophils % 38.7 % Normal 36.0-66.0 Lymph % 52.1 % High 24.0-44.0 [place] % 6.6 % Normal 2.0-8.0 Eos % 2.0 % Normal 0.0-3.0 Baso % 0.4 % Normal 0.0-1.0 Immature Granulocyte % 0.2 % Normal 0-3.0 Nucleated Red Blood Cell % 0.0 % Normal 0-0 Neutrophils # 1.8 10 Normal 1.5-8.5 Lymph # 2.4 10 Normal 1.5-5.0 [place] # 0.3 10 Normal 0.0-0.8 Eos # 0.1 10 Normal 0.0-0.5 Baso # 0.0 10 Normal 0.0-0.2 7 1 This Gastrointestinal PCR Pa clive detects the following bacteria, parasites and viruses: [...] infection. NEGATIVE by MULTIPLEXED NUCLEIC ACID PCR 2 Concentration Interpreta tion Follow-Up <16 - 50 ug/g Normal None >50 -120 ug/g Borderline Re-evaluate in 4-6 weeks >120 ug/g Abnormal Repeat as clinically indicated Performed at: [facility] [address] [id number] Immigration Manager: Constantin Leblanc MD, Phone: [phone] Result Units: ug Elast./g Severe Pancreatic Insufficiency: <100 Moderate Pancreatic Insufficiency: 100 - 200 Normal: >200 4 Siemens Immulite 2000 Immuno chemiluminometric assay (ICMA) . Values obtained with different assay methods or kits cannot be used interchangeably. Results cannot be interpreted as absolute evidence of the presence or absence of malignant disease. 5 Chromogranin A performed by [employer]/M2G KRYPTOR methodology . Values obtained with different assay methods or kits cannot be used interchangeably. Performed at: [address] [id number] Immigration Manager: Constantin Leblanc MD, Phone: [phone] Units are mL/min/1.73 m2 Chronic Kidney Disease Staging per NKF: Stage I & II GFR >=60 Normal to Mildly Decreased Stage III GFR 30-59 Moderately Decreased Stage IV GFR 15-29 Severely Decreased Stage V GFR <15 Very Little GFR Left ESRD GFR <15 on JUMPBASTING MACHINE OPERATOR 7 05/15/21 (SatMay 15) 07:22 PM NICANOR CHILEL ok Procedures Date Code Description Status 04/25/2021 06394 Office/Outpatient New Moderate M DM 45-59 Minutes Completed Medical Devices Description No Information Available Encounters Type Date Location Provider Dx Diagnosis Office Visit 04/25/2021 1:45p [facility] Gastroenterology [facility] ctice Nicanor Chilel MD R14.2 Eructation 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 Z86.010 Personal history of colonic polyps K22.2 Esophageal obstruction Assessments Date Code Description Provider 04/25/2021 R14.2 Eructation Nicanor Chilel MD 04/25/2021 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 Nicanor Chilel MD 04/25/2021 Z86.010 Personal history of colonic poly ps Nicanor Chilel MD 04/25/2021 K22.2 Esophageal obstruction Nicanor nava MD Plan of Treatment 04/25/2021 - Nicanor Chilel MD* R14.2 Eructation * 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 she does not have heartburn, but intermittently Hiccoughs/swallows air and belches that air - pt is doing this throughout interview. I think this maneuver is under volitional control.She had a large lesion removed from her colon. this will need a follow up. I am awaiting pathologyShe had esophageal dilatation performed. I do not think any biopsies were done. she will need repeat EGD with Bx to assess for EoE. * Recommendations:* EGD with biopsy, possible repeat dilation. Colonoscopy--reassess ascending colon lesion Trial on dicyclomine for abdominal pain/gas/cramping. Stool testing --re diarrhea/loose stool--r/o EPI etc Blood work- Hx gasritis,esophageal stricture, loose stool--r/o NE tumor BA swallow to assess for persistent stricture GES to assess for delayed emptying as cause for eructation/belching Functional Status Description No Information Available Mental Status Description No Information Available Referrals Refer to Reason for Referral Status Appt Date Nicanor Chilel M.D. OFFICE CONSULT NEW OR ESTABL ISHED - - 11/24/2020 - 05/23/2021 OFFICE/OUTPATIENT ESTABLISHED - - 11/24/2020 - 11/24/2021 DX: UNSPECIFIED ABD PAIN Scheduled 04/25/2021 [facility], Gastroenterology [address], [address] [place] [id number] [phone]
--- OUTSIDE RECORDS SUMMARY | 2021-08-04 10:32 | CCD | Continuity of Care Document ---
Author Author Praveena CHILEL MD Organization Unknown Address [address] [place] [address] Phone [phone] Care Team Providers Care Director Of Parks And Recreation Name Role Phone Massimo Alford D.O. Unavailable [...] directed on colonoscopy prep sheet. 355ml R14.2 Niacnor Chilel MD 04/25/2021 Miralax 17GM/Scoop Powder use [...] lb BMI (Body Mass Index) 28.2 kg/m2 [place] Body Weight 130 lb Weight 79.380 kg BSA (Body Surface Area) 1.89 m2 Results Test Acquired Date Facility Test Result H/L Range Note Gastrointestinal (GI) Panel 04/27/2021 [facility] Main Lab [address] [place], [place] [id number] [phone] Gastrointestinal (GI) Panel This Gastrointes <SEE NOTE > 1 Laboratory test finding 04/27/2021 [facility] Main Lab [address] [place] [address] [phone] Calprotectin Stool <16 ug/g Normal 0-120 2 Pancreatic Elastase Stool >500 Normal >200 3, 4 Laboratory test finding 04/25/2021 [facility] Main Lab [address] [place] [address] [phone] Gastrin 17 pg/mL Normal 0-115 5 Chromogranin A 38.5 ng/mL Normal 0.0-101.8 6 Comprehensive Metabolic Profil 04/25/2021 [facility] Main Lab [address] [place] [phone] Glucose, Fasting 79 mg/dL Normal 70-100 Blood Urea Nitrogen 13 mg/dL Normal 7-18 Creatinine For GFR 0.82 mg/dL Normal 0.55-1.30 Glomerular Filtration Rate > 60.0 Normal >60 7 Sodium Level 137 mEq/L Normal 136-145 Potassium [...] 1.0 Low 1.2-2.2 CBC With Differential 04/25/2021 [facility] Main Lab [address] [place] [phone] [phone] White Blood Count 4.6 10 Normal 4.0-10.0 [...] 36.0-66.0 Lymph % 52.1 % High 24.0-44.0 [place] % 6.6 % Normal 2.0-8.0 Eos % 2.0 % Normal 0.0-3.0 Baso % 0.4 % Normal 0.0-1.0 Immature Granulocyte % 0.2 % Normal 0-3.0 Nucleated Red Blood Cell % 0.0 % Normal 0-0 Neutrophils # 1.8 10 Normal 1.5-8.5 Lymph # 2.4 10 Normal 1.5-5.0 [place] # 0.3 10 Normal 0.0-0.8 Eos # 0.1 10 Normal 0.0-0.5 Baso # 0.0 10 Normal 0.0-0.2 8 1 This Gastrointestinal PCR Pa clive detects [...] Abnormal Repeat as clinically indicated Performed at: [address] [id number] Adult Parole Officer: Constantin Leblanc MD, Phone: [phone] Result Units: ug Elast./g Severe Pancreatic Insufficiency: <100 Moderate Pancreatic Insufficiency: 100 - 200 Normal: >200 4 06/01/21 (Jun 01) 03:55 PM NICANOR CHILEL nl.--no infection, no inflammation, no epi 5 Siemens Immulite 2000 Immuno chemiluminometric assay (ICMA) . Values obtained with different assay methods or kits cannot be used interchangeably. Results cannot be interpreted as absolute evidence of the presence or absence of malignant disease. 6 Chromogranin A performed by [employer] KRYPTOR methodology . Values obtained with different assay methods or kits cannot be used interchangeably. Performed at: [address] [id number] 61 Adult Parole Officer: Constantin Leblanc MD, Phone: [phone] 7 Units are mL/min/1.73 m2 Chronic Kidney Disease Staging per NKF: Stage I & II GFR >=60 Normal to Mildly Decreased Stage III GFR 30-59 Moderately Decreased Stage IV GFR 15-29 Severely Decreased Stage V GFR <15 Very Little GFR Left ESRD GFR <15 on ASH CONVEYOR OPERATOR 8 05/15/21 (SatMay 15) 07:22 PM NICANOR CHILEL ok Procedures Date Code Description Status 04/25/2021 77421 Office/Outpatient New Moderate M DM 45-59 Minutes Completed Medical Devices Description No Information Available Encounters Type Date Location Provider Dx Diagnosis Office Visit 04/25/2021 1:45p [facility] Gastroenterology Pra ctice Nicanor Chilel MD R14.2 Eructation 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 Z86.010 Personal history of colonic polyps K22.2 Esophageal obstruction Assessments Date Code Description Provider 04/25/2021 R14.2 Eructation Nicanor Chilel MD 04/25/2021 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 Nicanor Chilel MD 04/25/2021 Z86.010 Personal history of colonic poly ps Nicanor Chilel MD 04/25/2021 K22.2 Esophageal obstruction Nicanor nava MD Plan of Treatment Future Appointment(s):* 08/04/2021 2:00 am - Nicanor Chilel MD at [facility] 04/25/2021 - Nicanor Chilel MD* R14.2 Eructation * 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
[2021-08-04] MEDS ORDERED: LIDOCAINE 2% 100MG/5ML SDV (FOR ANES.) As Ordered ONE (12:06)
[2021-08-04] MEDS ORDERED: propofoL 200 MG/20 ML VIAL As Ordered ONE ×7 (12:06→12:43)
[2021-08-04] MEDS ORDERED: GLYCOPYRROLATE INJ 0.2 MG/ML 2 ML VIAL As Ordered ONE (12:06)
--- NOTE | 2021-08-04 12:30 | ROOR ---
Patient Name: Praveena Blair Procedure Date: 08/04/2021 12:13 PM Date of : 1990 Age: 30 Room: [facility] Gender: Female Note Status: Finalized Procedure: Upper GI endoscopy Indications: Dyspepsia, Dysphagia, Diarrhea, Eructation (History of esophageal stricture with dilation to 54F in 2019--follow up) Providers: Hamlet Rudd MD Referring MD: DARSHANA GILLILAND MD Requesting Provider: Medicines: Monitored Anesthesia Care Complications: No immediate complications. Procedure: Pre-Anesthesia Assessment: - The heart rate, respiratory rate, oxygen saturations, blood pressure, adequacy of pulmonary ventilation, and response to care were monitored throughout the procedure. The Endoscope was introduced through the mouth, and advanced to the second part of duodenum. The upper GI endoscopy was accomplished without difficulty. The patient tolerated the procedure well. Findings: The esophagus was normal. The stomach was normal. The examined duodenum was normal. Biopsies for histology were taken with a cold forceps in the third portion of the duodenum for evaluation of celiac disease. Biopsies were taken with a cold forceps in the gastric antrum for Helicobacter pylori testing. Biopsies were obtained in the proximal esophagus and in the mid esophagus with cold forceps for evaluation of eosinophilic esophagitis. Impression: - Normal esophagus. (there is no residual stricture, the esophagus is normal). - Normal stomach. - Normal examined duodenum. - Biopsies were taken with a cold forceps for evaluation of celiac disease. - Biopsies were taken with a cold forceps for Helicobacter pylori testing. - Biopsies were obtained in the proximal esophagus and in the mid esophagus. Recommendation: - Continue present medications. - Observe patient's clinical course. - Telephone endoscopist for pathology results in 2 weeks. Procedure Code(s): --- Professional --- 82860, Esophagogastroduodenoscopy, flexible, transoral; with biopsy, single or multiple Diagnosis Code(s): --- Professional --- R14.2, Eructation R19.7, Diarrhea, unspecified R13.10, Dysphagia, unspecified R10.13, Epigastric pain CPT copyright 2019 [employer]. All rights reserved. The codes documented in this report are preliminary and upon helicopter repairer review may be revised to meet current compliance requirements. Hamlet Rudd MD Hamlet Rudd MD 08/04/2021 12:30:22 PM Electronically signed by Hamlet Rudd MD Number of Addenda: 0 Note Initiated On: 08/04/2021 12:13 PM Estimated Blood Loss: Estimated blood loss: none.
--- NOTE | 2021-08-04 13:06 | ROOR ---
Patient Name: Praveena Blair Procedure Date: 08/04/2021 12:15 PM Date of : 1990 Age: 30 Room: [facility] Gender: Female Note Status: Finalized Procedure: Colonoscopy Indications: High risk colon cancer surveillance: Personal history of colonic polyps, Surveillance: History of piecemeal removal adenoma on last colonoscopy (< 3 yrs), Incidental - Suspected irritable bowel syndrome, Incidental - Irritable bowel syndrome with diarrhea Providers: Hamlet Rudd MD Referring MD: DARSHANA GILLILAND MD Requesting Provider: Medicines: Monitored Anesthesia Care Complications: No immediate complications. Procedure: Pre-Anesthesia Assessment: - The heart rate, respiratory rate, oxygen saturations, blood pressure, adequacy of pulmonary ventilation, and response to care were monitored throughout the procedure. The Colonoscope was introduced through the anus and advanced to 15 cm into the ileum. The colonoscopy was performed without difficulty. The patient tolerated the procedure well. The quality of the bowel preparation was good. Findings: A single endoclip with suture granuloma (vs residual polyp) was found in the proximal ascending colon. Biopsies were taken with a cold forceps for histology. A large tattoo was seen at the hepatic flexure. A post-polypectomy scar was found on the opposite wall from the tattoo site. There was no evidence of residual polyp tissue. The exam was otherwise without abnormality on direct and retroflexion views. Biopsies for histology were taken with a cold forceps from the entire colon for evaluation of microscopic colitis. The terminal ileum appeared normal. Impression: - An attached endoclip with small suture granuloma vs residual polyp in the proximal ascending colon. Biopsied. - A large tattoo was seen at the hepatic flexure-best seen in retroflexed view. A post-polypectomy scar was found on the opposite wall of the tattoo site. There was no evidence of residual polyp tissue. - The examination was otherwise normal on direct and retroflexion views. - The examined portion of the ileum was normal. - Biopsies were taken with a cold forceps from the entire colon for evaluation of microscopic colitis. - (Irritable Bowel Syndrome/IBS suspected.) Recommendation: - Continue present medications. - Use Bentyl (dicyclomine) 10 mg PO Q 4-6 hrs PRN 30 min AC. - (the script was sent to your pharmacy on file) - Repeat colonoscopy for surveillance based on pathology results. - Telephone endoscopist for pathology results in 2 weeks. Procedure Code(s): --- Professional --- 63063, Colonoscopy, flexible; with biopsy, single or multiple Diagnosis Code(s): --- Professional --- Z86.010, Personal history of colonic polyps T81.89XA, Other complications of procedures, not elsewhere classified, initial encounter CPT copyright 2019 [employer]. All rights reserved. The codes documented in this report are preliminary and upon stock mixer review may be revised to meet current compliance requirements. Hamlet Rudd MD Hamlet Rudd MD 08/04/2021 1:05:46 PM Electronically signed by Hamlet Rudd MD Number of Addenda: 0 Note Initiated On: 08/04/2021 12:15 PM Estimated Blood Loss: Estimated blood loss: none.
[2021-08-04 13:32] VITALS: BP 160/81
== END 2021-08-04 13:34 | disposition home or self-care (01) ==
LOC: M OPP 10:28
PROVIDERS: ATTEND Internal Medicine Gastroenterology
DX: Z12.11 Encounter for screening for malignant neoplasm of colon (principal); Z86.010 Personal history of colon polyps; R14.2 Eructation; R19.7 Diarrhea, unspecified; R13.10 Dysphagia, unspecified; R10.13 Epigastric pain; Z80.3 Family history of malignant neoplasm of breast